=== PATIENT | female | born 1935 | race Caucasian/White ===

== ENCOUNTER 2017-04-14 13:26 | Day surgery (SDC) | payer MEDICARE ==
[2017-04-14] MEDS ORDERED: LIDOCAINE 2% MDV (20MG/ML) 20ML VIAL IV ONE (14:00)
[2017-04-14] MEDS ORDERED: FENTANYL PF 100MCG/2ML VIAL IV ONE (14:00)
[2017-04-14] MEDS ORDERED: PROPOFOL 10 MG/ML VIAL IV ONE (14:00)
--- NOTE | 2017-04-20 16:10 | Operative Note ---
DATE OF SURGERY: 04/14/2017 OPERATION: ESOPHAGOGASTRODUODENOSCOPY with CRE balloon dilation of GE junction stricture. PREOPERATIVE DIAGNOSIS: Dysphagia and followup for esophagitis. POSTOPERATIVE DIAGNOSES: 1. Moderately severe GE junction stricture. 2. Mid esophageal diverticula. PROCEDURE: After informed consent was obtained from the patient and her family, she was placed in the left lateral decubitus position in the endoscopy suite and was sedated by the department of anesthesia. Once sedated, a well-lubricated [id number] gastroscope was placed in the posterior oropharynx and under direct visualization passed to the proximal esophagus. The endoscope was advanced through the proximal, mid, and distal esophagus. In the mid esophagus, there were noted to be two diverticula; one small and one [id number]. The endoscope was gently navigated past these areas into the distal esophagus. The GE junction demonstrated moderately severe stricture/ring. No inflammation was readily identified. The gastric body, antrum, pylorus, duodenal bulb, and sweep were unremarkable. J-turn views of the proximal stomach revealed no abnormalities other than perhaps a small hiatal hernia. The endoscope was then straightened. A CRE balloon was placed through the level of the stricture and it was inflated and held at 15 mm for 20 seconds but no waste of the stricture or the balloon was noted and as a result, the balloon was inflated to 16.5 mm, held for 1 minute, and then held at 18 mm for 1 minute. There were 2 superficial tears at the level of the stricture with a small amount of bleeding but no excessive bleeding or deep tears were identified. The stomach was deflated, liquid removed. The endoscope removed from the patient with no new findings noted. The procedure was well tolerated with no apparent complications. RECOMMENDATIONS: I would suggest the patient resume a soft diet and slowly increase her diet as tolerated. As always, thank you for allowing me to participate in the healthcare of your patients. CC: Dr. Riley GROSSMAN
== END 2017-04-14 14:30 | disposition home or self-care (01) ==
LOC: HOP 13:26
PROVIDERS: ATTEND Internal Medicine Gastroenterology
DX: R13.10 Dysphagia, unspecified (principal); K22.2 Esophageal obstruction; K22.5 Diverticulum of esophagus, acquired
CPT/HCPCS: 43245; 43220; 43249; 00740; C1726; J3010

== ENCOUNTER 2018-03-27 13:27 | Emergency (ER) | payer MEDICARE ==
--- NOTE | 2018-03-27 14:05 | Emergency Department Record ---
History of Present Illness - General Chief Complaint: Fall Injury Stated Complaint: FALL/HIT HEAD Time Seen by Provider: 03/27/18 13:49 Source: Patient, RN notes reviewed - History of Present Illness Initial Comments: fall and hit head and on floor and crawled to phone ,alert to name and place but not time and family states that has been a problem for a couple of years. patient was able to ambulte with help to the car and came to the ED via car. Hematoma left forehead MD Complaint: Fall - Related Data Home Medications Medication Instructions Recorded Confirmed Last Taken Aspirin [Aspir-Low] 81 mg PO DAILY 03/27/18 03/27/18 03/27/18 B Complex with Vitamin C [Vitamin 1 each PO DAILY 03/27/18 03/27/18 03/27/18 B-Complex with Vit C] Furosemide [Lasix] 40 mg PO DAILY 03/27/18 03/27/18 03/27/18 Levothyroxine Sodium [Synthroid] 50 mcg PO DAILY 03/27/18 03/27/18 03/27/18 Lisinopril 40 mg PO DAILY 03/27/18 03/27/18 03/27/18 Memantine HCl/Donepezil HCl 1 each PO QHS 03/27/18 03/27/18 Unknown [Namzaric 28 mg-10 mg Capsule] Previous Rx's Medication Instructions Recorded Ciprofloxacin HCl [Cipro] 500 mg PO Q12HR #20 tablet 03/27/18 Potassium Chloride 10 meq PO DAILY #30 tablet.er 03/27/18 Allergies Allergy/AdvReac Type Severity Reaction Status Date / Time latex [LATEX] Allergy Unknown PT UNSURE Verified 03/27/18 14:19 OF REACTION ibuprofen [From Motrin] Allergy PT UNSURE Verified 03/27/18 14:29 OF REACTION Penicillins Allergy PT UNSURE Verified 03/27/18 14:19 OF REACTION Sulfa (Sulfonamide Allergy PT UNSURE Verified 03/27/18 14:29 Antibiotics) OF REACTION Review of Systems Reviewed: No additional complaints except as noted below Constitutional: Reports: As per HPI. Denies: Chills, Fever, Malaise, Night sweats, Weakness, Weight change Eyes: Reports: As per HPI. Denies: Eye discharge, Eye pain, Photophobia, Vision change ENT: Reports: As per HPI. Denies: Congestion, Dental pain, Ear pain, Epistaxis , Hearing loss, Throat pain Respiratory: Reports: As per HPI. Denies: Cough, Dyspnea, Hemoptysis, Stridor, Wheezes Cardiovascular: Reports: As per HPI. Denies: Arrhythmia, Chest pain, Dyspnea on exertion, Edema, Murmurs, Orthopnea, Palpitations, Paroxysmal nocturnal dyspnea, Rheumatic Fever, Syncope Endocrine: Reports: As per HPI. Denies: Fatigue, Heat or cold intolerance, Polydipsia, Polyuria Gastrointestinal: Reports: As per HPI. Denies: Abdominal pain, Constipation, Diarrhea, Hematemesis, Hematochezia, Melena, Nausea, Vomiting Genitourinary: Reports: As per HPI. Denies: Abnormal menses, Discharge, Dyspareunia, Dysuria, Frequency, Hematuria, Incontinence, Retention, Urgency Musculoskeletal: Reports: As per HPI. Denies: Arthralgia, Back pain, Gout, Joint swelling, Myalgia, Neck pain Skin: Reports: As per HPI. Denies: Bruising, Change in color, Change in hair/ nails, Lesions, Pruritus, Rash Neurological: Reports: As per HPI. Denies: Abnormal gait, Confusion, Headache, Numbness, Paresthesias, Seizure, Tingling, Tremors, Vertigo, Weakness Psychiatric: Reports: As per HPI. Denies: Anxiety, Auditory hallucinations, Depression, Homicidal thoughts, Suicidal thoughts, Visual hallucinations Hematological/Lymphatic: Reports: As per HPI. Denies: Anemia, Blood Clots, Easy bleeding, Easy bruising, Swollen glands Past Medical History - SOCIAL HISTORY Smoking Status: Former smoker - RESPIRATORY Hx Respiratory Disorders: No - CARDIOVASCULAR Hx Cardio Disorders: Yes Hx Hypertension: Yes - NEURO Hx Neuro Disorders: No - GI Hx GI Disorders: Yes Hx Abdominal Pain: Yes (EPIGASTRIC) Hx Diverticulitis: Yes Hx Ulcer: Yes - Hx Genitourinary Disorders: Yes Hx UTI: Yes - ENDOCRINE Hx Endocrine Disorders: Yes Hx Thyroid Disease: Yes - MUSCULOSKELETAL Hx Musculoskeletal Disorders: Yes Hx Arthritis: Yes - PSYCH Hx Psych Problems: Yes Hx Depression: Yes - HEMATOLOGY/ONCOLOGY Hx Hematology/Oncology Disorders: No Physical Exam - General General Appearance: Alert, Oriented x3, Cooperative, No acute distress - Head Head exam: Normal inspection - Eye Eye exam: Normal appearance, PERRL Pupils: Normal accommodation - ENT ENT exam: Normal exam, Mucous membranes moist, Normal external ear exam, Normal orophraynx, TM's normal bilaterally Ear exam: Normal external inspection. negative: External canal tenderness Nasal Exam: Normal inspection. negative: Discharge, Sinus tenderness Mouth exam: Normal external inspection, Tongue normal Teeth exam: Normal inspection. negative: Dental caries Throat exam: Normal inspection. negative: Tonsillar erythema, Tonsillar exudate - Neck Neck exam: Normal inspection, Full ROM, Tenderness - Respiratory Respiratory exam: Normal lung sounds bilaterally. negative: Respiratory distress - Cardiovascular Cardiovascular Exam: Regular rate, Normal rhythm, Normal heart sounds - GI/Abdominal GI/Abdominal exam: Soft, Normal bowel sounds. negative: Tenderness - Rectal Rectal exam: Deferred - exam: Deferred - Extremities Extremities exam: Normal inspection, Full ROM, Normal capillary refill, Pedal edema, Tenderness (hip pain and left knee pain) - Back Back exam: Reports: Normal inspection, Full ROM. Denies: Muscle spasm, Rash noted, Tenderness - Neurological Neurological exam: Alert, Normal gait, Oriented X3, Reflexes normal - Psychiatric Psychiatric exam: Normal affect, Normal mood - Skin Skin exam: Dry, Intact, Normal color, Warm Medical Decision Making - Data Complexity MDM Data: Labs Ordered and/or Reviewed (k 2.8, UA 4 plus wendy), X-Ray Ordered and /or Reviewed (ct head neg, ct neck no fractures seen, pelvix neg knee neg), EKG Ordered and/or Reviewed (NST, no acute changes) - Lab Data Result diagrams: 03/27/18 14:00 03/27/18 14:00 Disposition Clinical Impression: Multiple contusions, Hypokalemia Fall Qualifiers: Encounter type: initial encounter Qualified Code(s): W19.XXXA - Unspecified fall, initial encounter UTI (urinary tract infection) Qualifiers: Urinary tract infection type: acute cystitis Hematuria presence: without hematuria Qualified Code(s): N30.00 - Acute cystitis without hematuria Disposition: Home, Self-Care Condition: (1) Good Instructions: Fall Prevention for Older Adults (ED), Urinary Tract Infection in Women (ED) Additional Instructions: follow up with family in one week Prescriptions: Ciprofloxacin HCl [Cipro] 500 mg PO Q12HR #20 tablet Potassium Chloride 10 meq PO DAILY #30 tablet.er Forms: Patient Portal Access Time of Disposition: 15:53 Quality - Quality Measures Quality Measures: N/A - Blood Pressure Screening Does Patient Have Any of the Following: No Blood Pressure Classification: Pre-Hypertensive BP Reading Systolic Measurement: 149 Diastolic Measurement: 81 Screening for High Blood Pressure: < Pre-Hypertensive BP, F/U Documented > [ [id number]] Pre-Hypertensive Follow-up Interventions: Referral to alternative/primary care provider.
[2018-03-27 14:20] LABS: HEMATOCRIT 31.4 % (35.0-47.0); MEAN CORPUSCULAR HEMOGLOBIN 29.9 pg (27-33); MEAN CORPUSCULAR HGB CONC 31.8 g/dl (32-36); MEAN PLATELET VOLUME 9.2 fl (7.4-10.4); PLATELET COUNT 435 K/uL (130-400); RED BLOOD COUNT 3.34 M/uL (3.80-5.40); RED CELL DISTRIBUTION WIDTH 18.1 % (11.5-14.5); URINE APPEARANCE SL CLOUDY; URINE BILIRUBIN NEGATIVE (NEGATIVE); URINE BLOOD NEGATIVE (NEGATIVE); URINE COLOR YELLOW; URINE GLUCOSE (UA) NEGATIVE (NEGATIVE); URINE KETONE NEGATIVE (NEGATIVE); URINE LEUKOCYTE ESTERASE NEGATIVE (NEGATIVE); URINE NITRITE POSITIVE (NEGATIVE); URINE PROTEIN NEGATIVE (NEGATIVE); WHITE BLOOD COUNT W/O DIFF 7.6 K/uL (4.2-12.2)
[2018-03-27 14:32] LABS: URINE EPITHELIAL CELLS 0 - 2 (FEW); URINE RBC 0 - 2 (NONE SEEN); URINE WBC 0 - 2 (0-2/hpf)
[2018-03-27 14:33] LABS: URINE BACTERIA 4+
[2018-03-27 14:34] LABS: BLOOD UREA NITROGEN 25 mg/dL (8-23)
[2018-03-27 14:35] LABS: CREATININE 0.7 mg/dL (0.5-0.9); EST GLOMERULAR FILTRATION RATE > 60 mL/min; TOTAL PROTEIN 5.9 g/dL (6.6-8.7)
[2018-03-27 14:37] LABS: GLUCOSE,RANDOM 113 mg/dL (74-109)
[2018-03-27 14:40] LABS: ALBUMIN 3.3 g/dL (4.0-5.0); ALKALINE PHOSPHATASE 159 U/L (35-104); ALT/SGPT 27 U/L (<33); AST/SGOT 27 U/L (10.0-35.0); BILIRUBIN,DIRECT 0.2 mg/dL (0-0.3)
[2018-03-27] MEDS ORDERED: POTASSIUM CHLORIDE 20 MEQ TABLET PO ONE (15:16)
[2018-03-27] MEDS ORDERED: CIPROFLOXACIN HCL 500 MG TABLET PO ONE (15:37)
--- NOTE | 2018-03-28 14:46 | CT SCAN REPORT ---
EXAM: EMERGENCY HEAD CT HISTORY: PATIENT FELL WITH HEMATOMA RIGHT FOREHEAD AND CONFUSED. TECHNIQUE: Axial CT scan of the head was performed without IV contrast. Comparison: None. Encounter: Initial. FINDINGS: No definite acute intracranial hemorrhage identified. No focal mass effect or midline shift apparent. Mild generalized atrophy and some chronic appearing deep white matter changes, nonspecific, but likely representing some chronic small vessel deep white matter ischemic disease. No definite acute infarct or intracranial mass lesion is seen. Mild membrane thickening in the left maxillary antrum. No depressed calvarial fracture is evident. IMPRESSION: 1. MILD GENERALIZED ATROPHY WITH SOME CHRONIC APPEARING DEEP WHITE MATTER CHANGES. 2. NO DEFINITE ACUTE INTRACRANIAL HEMORRHAGE OR FOCAL MASS EFFECT IDENTIFIED. 3. MILD MEMBRANE THICKENING IN THE LEFT MAXILLARY ANTRUM. JOB NUMBER: [id number] [facility]
--- NOTE | 2018-03-28 14:51 | CT SCAN REPORT ---
EXAM: EMERGENCY CT SCAN OF THE CERVICAL SPINE HISTORY: PATIENT FELL, CONFUSED. TECHNIQUE: Axial CT scan of the entire cervical spine was performed without IV contrast. Comparison: No prior cervical spine CT with which to compare. Encounter: Initial. FINDINGS: No apical pneumothorax evident. No definite fracture of the cervical spine identified. No prevertebral soft tissue swelling is evident. Quite prominent spurring is noted at the odontoid- anterior arch of C1 articulation. Narrowing of the fifth cervical interspace with associated hypertrophic spurring. Multilevel facet joint arthropathy. Multilevel foraminal stenosis in the cervical spine. IMPRESSION: 1. NO DEFINITE FRACTURE OR PREVERTEBRAL SOFT TISSUE SWELLING SEEN IN THE CERVICAL SPINE. 2. MULTILEVEL DEGENERATIVE CHANGE. [facility]BER: [id number] [facility]
--- NOTE | 2018-03-28 14:53 | RADIOLOGY REPORT ---
EXAM: LEFT KNEE HISTORY: PATIENT FELL WITH PAIN DISTAL LEFT FEMUR. HISTORY OF LEFT TKA. TECHNIQUE: Three views of the left knee were obtained. Comparison: None. Encounter: Initial. FINDINGS: The patient is postop left TKA. The components appear in good position. No definite acute fracture or dislocation of the left knee identified and no definite joint effusion seen. There is probably a small amount of vascular calcification present. IMPRESSION: 1. POSTOP LEFT TKA. 2. NO DEFINITE FRACTURE OF THE LEFT KNEE IDENTIFIED. JOB NUMBER: [id number] [facility]
--- NOTE | 2018-03-28 14:56 | RADIOLOGY REPORT ---
EXAM: PELVIS HISTORY: PATIENT FELL WITH PAIN LEFT PELVIC AREA. TECHNIQUE: AP and oblique views of the pelvis were obtained. Comparison: No prior pelvis x-ray. Encounter: Initial. FINDINGS: Diffuse osteopenia is seen consistent with osteoporosis. Degenerative arthritis both hips, right greater than left. Osteoporosis as well as overlying bowel content partially limits evaluation of the bony structures of the pelvis, however, no definite acute fracture of the bony pelvis identified. No dislocation of either hip in the AP projection. No diastasis of the sacroiliac joints or pubic symphysis seen. IMPRESSION: 1. OSTEOPOROSIS. 2. DEGENERATIVE ARTHRITIS BOTH HIPS, RIGHT GREATER THAN LEFT. 3. NO DEFINITE ACUTE FRACTURE OF THE BONY PELVIS IDENTIFIED. JOB NUMBER: [id number] [facility]
== END 2018-03-27 16:18 | disposition home or self-care (01) ==
LOC: ER 13:27
DX: S00.83XA Contusion of other part of head, initial encounter (principal); W18.30XA Fall on same level, unspecified, initial encounter; N30.00 Acute cystitis without hematuria; Y93.9 Activity, unspecified; Y92.9 Unspecified place or not applicable; Y99.9 Unspecified external cause status; E03.9 Hypothyroidism, unspecified; Z87.891 Personal history of nicotine dependence; I10 Essential (primary) hypertension; E87.6 Hypokalemia
CPT/HCPCS: 70450; 72125; 72190; 80048; 80076; 81001; 84484; 85027; 93005; 93010; 99284